=== PATIENT | female | born 1935 | race Caucasian/White ===

== ENCOUNTER 2018-08-03 11:52 | Emergency (ER) | payer OTHER ==
[~2018-08-03] VITALS: Ht 162.6 cm; Wt 54.4 kg
[2018-08-03] MEDS ORDERED: SODIUM CHLORIDE 0.9% 500 ML IVB ONE (11:59)
[2018-08-03] MEDS ORDERED: LEVO50TA7 PO (12:35)
[2018-08-03] MEDS ORDERED: METO25TA4 PO (12:35)
[2018-08-03] MEDS ORDERED: CALC667C PO (12:35)
[2018-08-03] MEDS ORDERED: PANT1INJ3 PO (12:35)
[2018-08-03] MEDS ORDERED: CITA10TA59 PO (12:35)
[2018-08-03] MEDS ORDERED: ACLI1AER2 IN (12:36)
[2018-08-03] MEDS ORDERED: TRAM50TA2 PO (12:36)
[2018-08-03 13:12] LABS: INR 0.98 (0.9-1.15); Partial Thromboplastin Time 23.8 sec (23.78-33.04); Prothrombin Time 10.5 sec (9.27-12.13)
[2018-08-03 13:18] LABS: Alanine Aminotransferase 63 U/L (13-56); Albumin 2.8 g/dL (3.4-5.0); Anion Gap 13 (5-15); Aspartate Aminotransferase 110 U/L (15-37); BUN/Creatinine Ratio 33.2; Blood Alcohol < 3.0 mg/dL (0-5); Blood Urea Nitrogen 63 mg/dL (7-18); Calcium 8.3 mg/dL (8.5-10.1); Carbon Dioxide 28 mmol/L (21-32); Chloride 95 mmol/L (98-107); GFR African American 32 mL/min; GFR Non-African American 27 mL/min; Glucose 102 mg/dL (74-106); Magnesium 2.6 mg/dL (1.6-2.6); Potassium 3.1 mmol/L (3.5-5.1); Sodium 136 mmol/L (136-145)
[2018-08-03 13:20] LABS: Urine Amorphous Crystal FEW /hpf (None Seen); Urine Bacteria FEW /hpf (None Seen); Urine Blood TRACE /uL (Negative); Urine Hyaline Cast MANY /lpf (0 - 2); Urine Mucus MODERATE (None Seen); Urine Specific Gravity 1.019 (1.001-1.035); Urine WBC 26 /hpf (0 - 5)
[2018-08-03 13:29] LABS: Alcohol, Urine < 3.0 mg/dL (0-5); Amphetamine Screen, Urine NEGATIVE (NEGATIVE); Barbiturate Scree,Urine NEGATIVE (NEGATIVE); Benzodiazephine Screen, Urine NEGATIVE (NEGATIVE); Cannabinoid Screen, Urine NEGATIVE (NEGATIVE); Cocaine Screen, Urine NEGATIVE (NEGATIVE); Opiate Scree,Urine NEGATIVE (NEGATIVE); Phencyclidine Screen, Urine NEGATIVE (NEGATIVE)
[2018-08-03 13:34] LABS: Alkaline Phosphatase 61 U/L (45-117); Bilirubin, Total 1.5 mg/dL (0.2-1.0); Total Protein 7.3 g/dL (6.4-8.2)
[2018-08-03] MEDS ORDERED: POTASSIUM CHL 20MEQ/100ML 100 ML IV ONE (14:00)
[2018-08-03 14:24] LABS: Basophils # (auto) 0 uL; Basophils % (auto) 0.1 % (0.0-2.0); Eosinophils # (auto) 0 uL; Eosinophils % (auto) 0.1 % (0.0-7.0); Hematocrit 46.8 % (36.0-46.0); Hemoglobin 15.5 g/dL (12.2-16.2); Lymphocytes # (auto) 1.3 uL; Lymphocytes % (auto) 8.4 % (10.0-50.0); Mean Corpuscular Hemoglobin 29.9 pg (28.0-32.0); Mean Corpuscular Hgb Conc. 33.1 g/dL (32.0-36.0); Mean Corpuscular Volume 90.5 fL (80.0-100.0); Monocytes # (auto) 1.1 uL; Monocytes % (auto) 7.3 % (0.0-12.0); Neutrophils # (auto) 13.1 uL; Neutrophils % (auto) 84.1 % (37.0-80.0); Nucleated Red Blood Cells % 0.1 %; Platelet Count (auto) 425 10^3/uL (140-450); Red Blood Cells 5.17 10^6/uL (4.0-5.20); Red Cell Distribution Width 14.8 % (11.8-14.3); White Blood Cell 15.5 10^3/uL (4.4-10.8)
[2018-08-03 14:55] VITALS: BP 145/102
[2018-08-03] MEDS ORDERED: LEVETIRACETAM 500 MG/5ML INJ IV ONE (15:11)
[2018-08-03] MEDS ORDERED: LEVETIRACETAM INJ 1,000 MG in D5W 5% 100 ML IV ONE (15:15)
== END 2018-08-03 15:16 | disposition short-term general hospital (02) ==
LOC: EDBD 11:52 → ER 11:52
DX: I62.9 Nontraumatic intracranial hemorrhage, unspecified (principal); R41.82 Altered mental status, unspecified; I16.9 Hypertensive crisis, unspecified; I10 Essential (primary) hypertension; E87.6 Hypokalemia; R79.89 Other specified abnormal findings of blood chemistry; J44.9 Chronic obstructive pulmonary disease, unspecified; I25.2 Old myocardial infarction; Z86.73 Personal history of transient ischemic attack (TIA), and cerebral infarction without residual deficits
CPT/HCPCS: 36415; 51702; 70450; 71045; 72125; 80053; 80307; 80320; 81001; 83605; 83735; 84484; 85025; 85610; 85730; 87040; 87077; 87186; 93005; 94761; 96361; 96365; 96375; 99291; J1953; J3480; J7030; J7060